=== PATIENT | female | born 1965 | race Caucasian/White ===

== ENCOUNTER 2021-02-23 11:11 | Day surgery (SDC) | payer BC ==
[2021-02-23] VITALS (10 sets, daily range): BP systolic 114–159; BP diastolic 68–95; PULSE 57–79; TEMP 98.8
[~2021-02-23] VITALS: Ht 165.1 cm; Wt 117.0 kg
[2021-02-23 12:36] LABS: HEMATOCRIT 45.7 % (37.0-47.0); HEMOGLOBIN 15.3 g/dl (12.5-16.0); MEAN CELL VOLUME 86 fl (80.0-100.0); MEAN CORPUSCULAR HEMOGLOBIN 29 pg (27.0-31.0); MEAN CORPUSCULAR HGB CONC 34 g/dl (33.0-37.0); MEAN PLATELET VOLUME 10.8 fl (7.4-10.4); PLATELET COUNT 193 K/mm3 (130-400); RED BLOOD COUNT 5.33 M/mm3 (4.10-5.30); REDCELL DISTRIBUTION WIDTH-CV 12.7 % (11.5-14.5)
[2021-02-23 12:45] LABS: INR 1.1 (0.8-3.0); PROTHROMBIN TIME 12.2 SECONDS (9.7-12.8)
[2021-02-23 12:46] LABS: CALCIUM 9.5 mg/dL (8.4-10.2); CREATININE, serum 0.7 (0.52-1.25); POTASSIUM 3.7 mmol/L (3.4-5.0)
[2021-02-23 12:47] LABS: PARTIAL THROMBOPLASTIN TIME 29.4 SECONDS (26.0-37.0)
--- NOTE | 2021-02-23 13:24 | NUR ---
SEE MERGE DOCUMENTATION FOR MEDICATION ADMINISTRATION TIMES AND INTRA/POST PROCEDURE SEDATION ASSESSMENTS. RIGHT HAND BARBEAU TEST POSITIVE.
[2021-02-23] MEDS ORDERED: ASPIRIN E.C. 8181 MG PO (13:29)
[2021-02-23] MEDS ORDERED: LIPITOR 80MG80 MG PO (13:30)
[2021-02-23] MEDS ORDERED: DESYREL 100MG100 MG PO (13:31)
[2021-02-23] MEDS ORDERED: LEXAPRO20 MG PO (13:32)
[2021-02-23] MEDS ORDERED: EXFORGE 5 MG-161 TAB PO (13:32)
--- NOTE | 2021-02-23 14:00 | NUR ---
Report from Alin MENDOZA. Right Tband with 14 cc air CD&I, good pulses, and cap refill < 3 secs noted. Spouse bedside. VSS
--- NOTE | 2021-02-23 17:46 | NUR ---
Pt ready for departure at this time. TR band has been deflated with no problem. Site dressed with bandaid, folded 2x2 and coban, cms intact distal. I have reviewed dc/fu instructions with pt and . They verbalized understanding. IV has been dc'd with cath intact, dressing applied. Pt's meal was delayed and has just arrived, so pt plans to eat then I will escort pt and to exit.
== END 2021-02-23 18:26 | disposition home or self-care (01) ==
LOC: COL.CAR 11:11
PROVIDERS: Internal Medicine Interventional Cardiology
DX: R94.39 Abnormal result of other cardiovascular function study (principal); R07.9 Chest pain, unspecified; I65.22 Occlusion and stenosis of left carotid artery; I10 Essential (primary) hypertension; R09.89 Other specified symptoms and signs involving the circulatory and respiratory systems; R06.02 Shortness of breath; E78.5 Hyperlipidemia, unspecified; R60.0 Localized edema; Z79.891 Long term (current) use of opiate analgesic; Z87.891 Personal history of nicotine dependence; Z79.899 Other long term (current) drug therapy; Z83.3 Family history of diabetes mellitus; Z80.3 Family history of malignant neoplasm of breast
CPT/HCPCS: C1769; J1644; J2250; J3010; Q9967